=== PATIENT | female | born 1985 | race Two or more races ===

== ENCOUNTER 2024-09-18 22:34 | Emergency (ER) | payer MEDICAID, SELFPAY ==
[2024-09-18 22:35] VITALS: BMI 43.8
[2024-09-18 22:44] VITALS: BP 150/92; PULSE 94; RESP 18; TEMP 37; O2SAT 98
--- NOTE | 2024-09-18 22:53 | EDNOTE_ITS ---
ED Allergic Reaction RME/HPI General Chief complaint: Allergic Reaction Stated complaint: ALLERGIC REACTION TO SHRIMP Time Seen by Provider: 09/18/24 22:50 Arrival date/time: 09/18/24 22:34 39-year-old female with a history of shellfish allergies reports with complaints of allergic reaction. Patient states she had some food today unaware that it contained shrimp. Patient states that she broke out immediately and hives but no tongue swelling no shortness of breath no sensation of throat closing. Patient states that she has not taken any medications for symptoms Limitations: no limitations Related Data Home Medications ?Medication ?Instructions ?Recorded ?Confirmed aspirin 81 mg chewable tablet 81 mg PO BID 12/26/23 03/12/24 budesonide-formoterol HFA 80 2 inh inhalation BID PRN short of 12/26/23 03/12/24 mcg-4.5 mcg/actuation aerosol breath inhaler (Symbicort) vits no.130-ferrous fum 1 tab PO DAILY 12/26/23 03/12/24 27 mg iron-folic acid 800 mcg tablet ( Vitamin) nifedipine 30 mg tablet,extended 30 mg PO DAILY 03/06/24 03/12/24 release 24 hr (Procardia XL) Previous Rx's ?Medication ?Instructions ?Recorded epinephrine 0.3 mg/0.3 mL See Rx Instructions .Route 09/19/24 injection, auto-injector (EpiPen .COMPLEX #2 ea 2-Garrett) Allergies Allergy/AdvReac Type Severity Reaction Status Date / Time shrimp Allergy Severe Swelling Verified 03/12/24 02:01 of Lip/Tongue/Throat acetaminophen Allergy Intermediate Hives Verified 03/12/24 02:01 [From Theraflu Day-Night Cold,Cough] dextromethorphan Allergy Intermediate Hives Verified 03/12/24 02:01 [From Theraflu Day-Night Cold,Cough] diphenhydramine Allergy Intermediate Hives Verified 03/12/24 02:01 [From Theraflu Day-Night Cold,Cough] phenylephrine Allergy Intermediate Hives Verified 03/12/24 02:01 [From Theraflu Day-Night Cold,Cough] Review of Systems Constitutional Constitutional: Denies chills, Denies fever(s) and Denies headache(s) ENT Ears, Nose, Mouth, and Throat: Denies headache(s), Denies throat swelling, Denies tongue swelling and Denies vertigo Cardiovascular Cardiovascular: Denies chest pain and Denies dyspnea Respiratory Respiratory: Denies cough and Denies dyspnea Gastrointestinal Gastrointestinal: Denies nausea and Denies vomiting Musculoskeletal Musculoskeletal: Denies deformity and Denies joint swelling Integumentary/Breasts Skin/Breast: Reports pruritus and Reports rash Neurologic Neurologic: Denies headache(s) and Denies vertigo Hematologic/Lymphatic Hematologic/Lymphatic: Denies easy bleeding and Denies easy bruising Allergic/Immunologic Allergic/Immunologic: Denies throat swelling and Denies tongue swelling Past Medical History Past Medical History NEUROLOGIC: Negative Neurological Disorders or Seizures CARDIAC: Negative Cardiac Disorders or Congestive Heart Failure RESPIRATORY: Positive Asthma; Negative Chronic Obstructive Pulmonary Disease (COPD) GASTROINTESTINAL: Positive Obesity; Negative Gastrointestinal Disorders GENITOURINARY: Negative Genitourinary Disorders or Renal Disease MUSCULOSKELETAL: Negative Musculoskeletal Disorders ENDOCRINE: Positive Diabetes Mellitus Type 2; Negative Endocrine Disorders or Diabetes Mellitus Type 1 HEMATOLOGIC: Negative Blood Disorders OTHER HISTORY: Negative Hospitalization, Autoimmune Disease, Down Syndrome, Developmental Delay, Shingles, Falls, Blood Transfusions, Blood Transfusion Reaction, Anesthesia Reactions or MRSA Family History FAMILY HISTORY: Positive Family Respiratory Disorders; Negative Family Psychiatric Problems, Family Cardiac Disorders, Family Gastrointestinal Problems, Family Cancer, Family Surgery or Family Anesthesia Reaction Surgical History SURGICAL: Positive Cardiac Surgery Social History SMOKING STATUS: Never smoker ED Exam General Limitations: Present no limitations General appearance: Present alert and in no apparent distress Head Head exam: Present atraumatic Eye Eye exam: Present normal appearance, PERRL and EOMI ENT ENT exam: Present normal exam, normal oropharynx, mucous membranes moist and other (Airway is patent no tongue swelling) Neck Neck exam: Present normal inspection, full ROM and trachea midline Chest Chest inspection: Present normal inspection and symmetric chest wall rise Respiratory Respiratory exam: Present normal lung sounds bilaterally Cardiovascular Cardiovascular exam: Present regular rate, normal rhythm and normal heart sounds Abdominal Exam Abdominal exam: Present soft and normal bowel sounds Extremities Exam Extremities exam: Present normal inspection and full ROM Back Exam Back exam: Present normal inspection and full ROM Neurological Exam Neurological exam: Present alert, oriented X3 and CN II-XII intact Psychiatric Psychiatric exam: Present normal affect and normal mood Skin Skin exam: Present warm, dry, intact and rash (Diffuse hives noted on face neck trunk and upper extremities) Course Course Course Narrative: 39-year-old female with a history of shellfish allergy reports with complaints of allergic reaction. Patient was given Decadron and reassessment of patient states she is feeling much better hives are starting to resolve no tongue swelling no shortness of breath no throat closing. Patient is stable nontoxic- appearing with stable vital signs will be discharged home with an EpiPen and advised to follow-up as needed with PCP Quality Measures none Orders Category Date Time Status Dexamethasone Inj [Decadron Inj] Med 09/18/24 22:53 Discontinued 10 mg PO X1 ONE Vital Signs Vital signs: Vital Signs Temperature 98.6 F 09/18/24 22:44 Pulse Rate 94 09/18/24 22:44 Respiratory Rate 18 09/18/24 22:44 Blood Pressure 150/92 H 09/18/24 22:44 Pulse Oximetry (%) 98 09/18/24 22:44 Oxygen Delivery Method Room Air 09/18/24 22:44 Allergic Reaction Patient data External records reviewed:: None Clinical information provided by:: patient Social determinants that could affect healthcare access:: none Patient has the following chronic illnesses:: none How is presenting disease/condition affected by chronic disease/condition?: no chronic disease Evaluation data The following diagnostics were reviewed and interpreted by me:: other (specify) (none) Lab and/or radiology exams considered but not ordered:: none Interpretation Summary: n/a Medications / Prescriptions Medications or Prescriptions considered but not ordered:: Benadryl and epinephrine Medication administrations:: Medication Administration History Discontinued Medications Dexamethasone Sodium Phosphate (Dexamethasone Sod Phos Inj 10 Mg/Ml Vial) 10 mg PO X1 ONE Stop: 09/18/24 22:54 Last Admin: 09/18/24 23:19 Dose: 10 mg Documented By: As above Consultations Consultation(s) initiated? (list below): No Diagnosis Most likely diagnosis given after review of the tests above:: Allergic reaction Admission Indicated Admission indicated?: not indicated Admission Request Was there a request for admission?: No Disposition Plan Disposition Plan: Discharge Discharge Attestation Discharge Attestation: The patient and all family members were given an opportunity to ask questions and understood the discharge instructions. Discharge instructions specifically effects, indications for sooner follow up or return to the emergency department, and the expected course of current diagnosis. Patient condition: Stable Discharge Plan Plan Patient Disposition: HOME (Self Care) Prescriptions/Referrals Prescriptions/Med Rec: New epinephrine [EpiPen 2-Garrett] 0.3 mg/0.3 mL auto-injector See Rx Instructions .ROUTE .COMPLEX Qty: 2 0RF Rx Instructions: 0.3 mL subcutaneously as directed on box for anaphylaxis No Action aspirin 81 mg tablet,chewable 81 mg PO BID budesonide-formoterol [Symbicort] 80-4.5 mcg/actuation HFA aerosol inhaler 2 inh INHALATION BID PRN (Reason: short of breath) Patient Comments: INHALE ONE PUFF BY MOUTH TWICE DAILY Vitamin 27 mg iron- 800 mcg tablet 1 tab PO DAILY Patient Comments: TAKE ONE TABLET BY MOUTH EVERY DAY VITAMIN nifedipine [Procardia XL] 30 mg Tablet Extended Release 24hr 30 mg PO DAILY Referrals: Temporary Provider,ED [Physician] - In 1 week Problem List Clinical Impression: Allergic reaction Patient/Caregiver Discharge Instructions Discharge Activity: activity as tolerated Additional Instructions: Use medication as directed on the box as needed. Follow with your primary care provider as needed Print Language: Finnish Stand Alone Forms: [employer] Award Info., Patient Portal Info Letter
[2024-09-18] MEDS: DEXAMETHASONE SOD PHOS INJ 10 MG/ML VIAL PO (23:19)
== END 2024-09-19 01:35 | disposition home or self-care (01) ==
PROVIDERS: Emergency Provider Emergency Medicine; PCP Family Medicine
DX: T78.1XXA Other adverse food reactions, not elsewhere classified, initial encounter (principal); L50.0 Allergic urticaria
CPT/HCPCS: 99282; J1100

== ENCOUNTER 2024-10-09 12:18 | Emergency (ER) | payer MEDICAID, SELFPAY ==
[2024-10-09 12:30] VITALS: PULSE 95; RESP 18; O2SAT 99
[2024-10-09 12:40] VITALS: BP 134/88; PULSE 83; RESP 19; TEMP 36.9; O2SAT 98; BMI 41.7
--- NOTE | 2024-10-09 12:42 | XR_ITS ---
Examination: Knee, right , 3 views Technique: Knee AP, lateral, oblique 3 views Date and time of exam: October 09, 2024 at 1249 hours INDICATIONS: Injury to the knee today, knee pain FINDINGS: No fracture or dislocation No foreign body IMPRESSION: No fracture or dislocation
--- NOTE | 2024-10-09 12:42 | PD.EDDIZZY ---
ED Dizzyness RME/HPI General Chief Complaint: Dizziness Stated Complaint: DIZZINESS Time Seen by Provider: 10/09/24 12:37 Source: patient Arrival date/time: 10/09/24 12:18 39-year-old female with no known medical history presents to the emergency room with a chief complaint of dizziness and lightheadedness as well as some right sided knee pain x 1 hour. Patient states she was on the ground playing with her kids when she began having some right-sided knee pain after hitting her knee on a toy. Patient states moments after she began to feel lightheaded and dizzy and the cold sensation in her chest and called EMS. Mode of arrival: ambulatory Limitations: no limitations Related Data Home Medications ?Medication ?Instructions ?Recorded ?Confirmed aspirin 81 mg chewable tablet 81 mg PO BID 12/26/23 03/12/24 budesonide-formoterol HFA 80 2 inh inhalation BID PRN short of 12/26/23 03/12/24 mcg-4.5 mcg/actuation aerosol breath inhaler (Symbicort) vits no.130-ferrous fum 1 tab PO DAILY 12/26/23 03/12/24 27 mg iron-folic acid 800 mcg tablet ( Vitamin) nifedipine 30 mg tablet,extended 30 mg PO DAILY 03/06/24 03/12/24 release 24 hr (Procardia XL) Previous Rx's ?Medication ?Instructions ?Recorded epinephrine 0.3 mg/0.3 mL See Rx Instructions .Route 09/19/24 injection, auto-injector (EpiPen .COMPLEX #2 ea 2-Garrett) Allergies Allergy/AdvReac Type Severity Reaction Status Date / Time shrimp Allergy Severe Swelling Verified 03/12/24 02:01 of Lip/Tongue/Throat acetaminophen Allergy Intermediate Hives Verified 03/12/24 02:01 [From Theraflu Day-Night Cold,Cough] dextromethorphan Allergy Intermediate Hives Verified 03/12/24 02:01 [From Theraflu Day-Night Cold,Cough] diphenhydramine Allergy Intermediate Hives Verified 03/12/24 02:01 [From Theraflu Day-Night Cold,Cough] phenylephrine Allergy Intermediate Hives Verified 03/12/24 02:01 [From Theraflu Day-Night Cold,Cough] Review of Systems Review of Systems Systems Reviewed: All systems reviewed, normal except as documented Constitutional Constitutional: Reports system reviewed and no additional complaints, except as documented, Denies fatigue, Denies fever(s), Denies headache(s) and Denies weakness Eyes Eyes: Reports system reviewed and no additional complaints, except as documented, Denies blurry vision and Denies change in vision ENT Ears, Nose, Mouth, and Throat: Reports system reviewed and no additional complaints, except as documented, Denies otalgia, Denies headache(s), Denies nasal congestion, Denies throat swelling and Denies vertigo Cardiovascular Cardiovascular: Reports system reviewed and no additional complaints, except as documented, Reports chest pain, Denies dyspnea, Denies dyspnea on exertion, Reports lightheadedness and Reports rapid heart rate Respiratory Respiratory: Reports system reviewed and no additional complaints, except as documented, Denies chest congestion, Denies cough, Denies dyspnea, Denies dyspnea on exertion and Denies wheezing Gastrointestinal Gastrointestinal: Reports system reviewed and no additional complaints, except as documented, Denies abdominal pain, Denies cramping, Denies nausea and Denies vomiting Genitourinary Genitourinary: Reports system reviewed and no additional complaints, except as documented Musculoskeletal Musculoskeletal: Reports system reviewed and no additional complaints, except as documented and Denies back pain Integumentary/Breasts Skin/Breast: Reports system reviewed and no additional complaints, except as documented and Denies wounds Neurologic Neurologic: Reports system reviewed and no additional complaints, except as documented, Denies confusion, Denies headache(s), Denies lack of coordination, Denies vertigo and Denies weakness Psychiatric Psychiatric: Reports system reviewed and no additional complaints, except as documented, Denies anxiety, Denies confusion, Denies depression, Denies paranoia, Denies suicidal ideation and Denies tactile hallucinations Endocrine Endocrine: Reports system reviewed and no additional complaints, except as documented and Denies fatigue Hematologic/Lymphatic Hematologic/Lymphatic: Reports system reviewed and no additional complaints, except as documented and Denies lymphadenopathy Allergic/Immunologic Allergic/Immunologic: Reports system reviewed and no additional complaints, except as documented, Denies throat swelling, Denies urticaria and Denies wheezing Past Medical History Past Medical History NEUROLOGIC: Negative Neurological Disorders or Seizures CARDIAC: Negative Cardiac Disorders or Congestive Heart Failure RESPIRATORY: Positive Asthma; Negative Chronic Obstructive Pulmonary Disease (COPD) GASTROINTESTINAL: Positive Obesity; Negative Gastrointestinal Disorders GENITOURINARY: Negative Genitourinary Disorders or Renal Disease MUSCULOSKELETAL: Negative Musculoskeletal Disorders ENDOCRINE: Positive Diabetes Mellitus Type 2; Negative Endocrine Disorders or Diabetes Mellitus Type 1 HEMATOLOGIC: Negative Blood Disorders OTHER HISTORY: Negative Hospitalization, Autoimmune Disease, Down Syndrome, Developmental Delay, Shingles, Falls, Blood Transfusions, Blood Transfusion Reaction, Anesthesia Reactions or MRSA Family History FAMILY HISTORY: Positive Family Respiratory Disorders; Negative Family Psychiatric Problems, Family Cardiac Disorders, Family Gastrointestinal Problems, Family Cancer, Family Surgery or Family Anesthesia Reaction Surgical History SURGICAL: Positive Cardiac Surgery Social History SMOKING STATUS: Never smoker ED Exam General Limitations: Present no limitations General appearance: Present alert and in no apparent distress Head Head exam: Present atraumatic Eye Eye exam: Present normal appearance, PERRL and EOMI ENT ENT exam: Present normal exam, normal oropharynx and mucous membranes moist Neck Neck exam: Present normal inspection, full ROM and trachea midline Chest Chest inspection: Present normal inspection and symmetric chest wall rise Respiratory Respiratory exam: Present normal lung sounds bilaterally; Absent respiratory distress, wheezes, stridor, accessory muscle use or prolonged expiratory phase Cardiovascular Cardiovascular exam: Present regular rate, normal rhythm and normal heart sounds; Absent bradycardia, tachycardia, irregular rhythm, systolic murmur or diastolic murmur Abdominal Exam Abdominal exam: Present soft and normal bowel sounds Extremities Exam Extremities exam: Present normal inspection and full ROM Expanded Lower Extremity Exam Hip/Pelvis exam: Present normal inspection Upper leg exam: Present normal inspection Knee exam: Present tenderness; Absent full ROM, swelling or abrasion Lower leg exam: Present normal inspection Ankle exam: Present normal inspection Foot/toe exam: Present normal inspection Gait: observed and normal Back Exam Back exam: Present normal inspection and full ROM Neurological Exam Neurological exam: Present alert, oriented X3 and CN II-XII intact Psychiatric Psychiatric exam: Present normal affect and normal mood Skin Skin exam: Present warm, dry, intact and normal color Course Quality Measures none Orders Category Date Time Status EKG (ED ONLY) *Do not use* NOW Care 10/09/24 12:42 Completed EKG (ED Only) Stat Exams 10/09/24 12:42 Ordered XR knee RT 3V Stat Exams 10/09/24 12:42 Completed B-Type Natriuretic Peptide Stat Lab 10/09/24 13:00 Completed CBC Stat Lab 10/09/24 13:00 Completed Comprehensive Metabolic Panel Stat Lab 10/09/24 13:00 Completed Magnesium Stat Lab 10/09/24 13:00 Completed Troponin I Stat Lab 10/09/24 13:00 Completed Vital Signs Vital signs: Vital Signs Temperature 98.5 F 10/09/24 12:40 Pulse Rate 83 10/09/24 12:40 Respiratory Rate 19 10/09/24 12:40 Blood Pressure 134/88 H 10/09/24 12:40 Pulse Oximetry (%) 98 10/09/24 12:40 Oxygen Delivery Method Room Air 10/09/24 12:40 O2 saturation 98% within normal limits Dizziness MDM Narrative MDM Narrative:: 39-year-old female with no known medical history presents to the emergency room with a chief complaint of dizziness and lightheadedness as well as some right sided knee pain x 1 hour. Patient states she was on the ground playing with her kids when she began having some right-sided knee pain after hitting her knee on a toy. Patient states moments after she began to feel lightheaded and dizzy and the cold sensation in her chest and called EMS. Clinically the patient appears nontoxic and in no apparent distress. Physical examination shows tenderness with palpation to the lateral side of the right knee. There is no laxity. Patient is complaining of 5 out of 10 intermittent chest pain as well as a sensation of coldness. Patient states she is having dizziness and lightheadedness that accompanies the symptoms. Patient has a normal neurological examination she was a GCS of 15 alert and oriented x 4 pupils are PERRLA EOMs are intact. CT of the head and brain was completed and was negative for any acute hemorrhage mass effect or midline shift. CBC CMP were negative for any acute findings urinalysis was normal. Patient was educated to follow-up with primary care provider and return to the emergency room for any evidence of worsening signs or symptoms Patient data External records reviewed:: [facility] previous records Clinical information provided by:: patient Social determinants that could affect healthcare access:: none Patient has the following chronic illnesses:: No chronic illnesses How is presenting disease/condition affected by chronic disease/condition?: no chronic disease Evaluation data The following diagnostics were reviewed and interpreted by me:: lab results and radiology exam(s) Lab and/or radiology exams considered but not ordered:: Labs and radiology exams considered and ordered Interpretation Summary: Right knee x-ray-no acute fracture Medications / Prescriptions Medications or Prescriptions considered but not ordered:: Medication not given Medication administrations:: Medication not given Consultations Consultation(s) initiated? (list below): No Diagnosis Dizziness Differential Diagnosis: benign paroxysmal positional vertigo, orthostatic hypotension, vertebral basilar insufficiency, cerebrovascular accident and other (Dizziness) Most likely diagnosis given after review of the tests above:: Dizziness Admission Indicated Admission indicated?: not indicated Admission Request Was there a request for admission?: No Disposition Plan Disposition Plan: Discharge Discharge Attestation Discharge Attestation: The patient and all family members were given an opportunity to ask questions and understood the discharge instructions. Discharge instructions specifically effects, indications for sooner follow up or return to the emergency department, and the expected course of current diagnosis. Patient condition: Stable Discharge Plan Plan Patient Disposition: HOME (Self Care) Disposition Comment: Stable Prescriptions/Referrals Prescriptions/Med Rec: No Action aspirin 81 mg tablet,chewable 81 mg PO BID budesonide-formoterol [Symbicort] 80-4.5 mcg/actuation HFA aerosol inhaler 2 inh INHALATION BID PRN (Reason: short of breath) Patient Comments: INHALE ONE PUFF BY MOUTH TWICE DAILY Vitamin 27 mg iron- 800 mcg tablet 1 tab PO DAILY Patient Comments: TAKE ONE TABLET BY MOUTH EVERY DAY VITAMIN epinephrine [EpiPen 2-Garrett] 0.3 mg/0.3 mL auto-injector See Rx Instructions .ROUTE .COMPLEX Qty: 2 0RF Rx Instructions: 0.3 mL subcutaneously as directed on box for anaphylaxis nifedipine [Procardia XL] 30 mg Tablet Extended Release 24hr 30 mg PO DAILY Referrals: Javier Sainz MD [Primary Care Provider] - In 1 week Problem List Clinical Impression: Dizziness of unknown etiology Patient/Caregiver Discharge Instructions Education Materials: ED Dizziness, Uncertain Cause Additional Instructions: Please follow-up with your primary care provider in the next 24 to 48 hours. Your cardiac workup was within normal limits. Blood work was normal urinalysis was normal. Your x-ray from your right knee was negative for any acute fracture. Please follow-up with your primary care provider and return to the emergency room for any evidence of worsening signs or symptoms Print Language: Salvadorean Stand Alone Forms: SPARQ Info., Patient Portal Info Letter MONI/RICKEY Supervising Physician MONI/RICKEY Supervising Physician: Dr Hall
[2024-10-09 13:21] LABS: Basophils % (Auto) 1 % (0-2.5); Eosinophils # (Auto) 0.7 Thou/mm3 (0.0-0.5); Eosinophils % (Auto) 9 % (0-10); Hematocrit 34.2 % (36.0-46.0); Hemoglobin 11.3 g/dL (12.0-16.0); Immature Granulocytes % (Auto) 0 % (0-0); Immature Granulocytes Auto 0.02 Thou/mm3 (0.00-0.00); Lymphocytes # (Auto) 1.8 Thou/mm3 (1.0-4.8); Lymphocytes % (Auto) 21 % (10-50); Mean Corpuscular Hemoglobin 27.3 pg (25.0-35.0); Mean Corpuscular Volume 83 fL (80-100); Monocytes # (Auto) 0.4 Thou/mm3 (0.0-0.8); Monocytes % (Auto) 5 % (0-12); Neutrophils # (Auto) 5.3 Thou/mm3 (1.8-7.7); Neutrophils % (Auto) 65 % (37-80); Nucleated Red Blood Cell % 0 /100 WBC (0); Platelet Count 393 Thou/mm3 (140-440); RDW Standard Deviation 38.3 fL (36.4-46.3); Red Blood Count 4.14 Miln/mm3 (4.00-5.20); White Blood Count 8.2 Thou/mm3 (3.6-11.0)
[2024-10-09 13:39] LABS: B-Type Natriuretic Peptide < 20 pg/mL (0-100)
[2024-10-09 13:51] LABS: Alanine Aminotransferase 29 U/L (10-49); Albumin, Serum 4.6 gm/dL (3.5-5.0); Albumin/Globulin Ratio 1.6 (1.2-2.2); Alkaline Phosphatase 62 U/L (46-116); Anion Gap 7 (7-16); Aspartate Amino Transferase 73 U/L (0-34); BUN/Creatinine Ratio 11 Ratio (12-20); Bilirubin,Total 0.3 mg/dL (0.3-1.2); Blood Urea Nitrogen 9 mg/dL (9-23); Calcium 9.1 mg/dL (8.3-10.6); Calcium (Corrected) 9.1 mg/dL (8.5-10.1); Carbon Dioxide 24.8 mMol/L (20.0-31.0); Chloride 106 mMol/L (98-107); Creatinine (Component) 0.8 mg/dL (0.6-1.3); Estimated Creatinine Clearance 133.9 mL/min (>60); Globulin 2.8 gm/dL (2.3-3.5); Glucose 98 mg/dL (74-106); Osmolality,Calculated 274 (275-295); Sodium 138 mMol/L (136-145); Total Protein 7.4 gm/dL (5.7-8.2); eGFR > 60 See Note
[2024-10-09 14:02] LABS: Troponin I < 0.002 ng/mL (0.0-0.045)
== END 2024-10-09 14:50 | disposition home or self-care (01) ==
PROVIDERS: Nurse Practitioner Family; Emergency Provider Emergency Medicine; PCP Family Medicine
DX: R42 Dizziness and giddiness (principal); S89.91XA Unspecified injury of right lower leg, initial encounter; W22.8XXA Striking against or struck by other objects, initial encounter; Y93.89 Activity, other specified
CPT/HCPCS: 36415; 73562; 80053; 83735; 83880; 84484; 85025; 93005; 99283

== ENCOUNTER 2024-12-13 05:40 | Day surgery (SDC) | payer MEDICAID, SELFPAY ==
[2024-12-12 09:39] VITALS: BMI 44.1
[2024-12-12 11:03] LABS: Basophils % (Auto) 1 % (0-2.5); Eosinophils # (Auto) 0.3 Thou/mm3 (0.0-0.5); Eosinophils % (Auto) 4 % (0-10); Hematocrit 36.5 % (36.0-46.0); Hemoglobin 11.7 g/dL (12.0-16.0); Immature Granulocytes % (Auto) 0 % (0-0); Immature Granulocytes Auto 0.01 Thou/mm3 (0.00-0.00); Lymphocytes # (Auto) 2.2 Thou/mm3 (1.0-4.8); Lymphocytes % (Auto) 29 % (10-50); Mean Corpuscular HGB Conc 32.1 g/dl (31.0-37.0); Mean Corpuscular Hemoglobin 25.5 pg (25.0-35.0); Mean Corpuscular Volume 80 fL (80-100); Monocytes # (Auto) 0.2 Thou/mm3 (0.0-0.8); Monocytes % (Auto) 3 % (0-12); Neutrophils # (Auto) 4.7 Thou/mm3 (1.8-7.7); Neutrophils % (Auto) 63 % (37-80); Nucleated Red Blood Cell % 0 /100 WBC (0); Platelet Count 420 Thou/mm3 (140-440); RDW Standard Deviation 41.6 fL (36.4-46.3); Red Blood Count 4.58 Miln/mm3 (4.00-5.20); White Blood Count 7.4 Thou/mm3 (3.6-11.0)
[2024-12-12 11:21] LABS: HCG,Qualitative Serum Negative
[2024-12-12 12:03] LABS: Hepatitis A Antibody IgM Non Reactive (Non React); Hepatitis B Core Antibody IgM Non Reactive (Non React); Hepatitis B Surface Antigen Non Reactive (Non React); Hepatitis C Antibody Non Reactive (Non React)
--- NOTE | 2024-12-12 14:36 | SUR.PREOP ---
Message left for pt to come in tomorrow at 0700 for surgery.
[2024-12-12 16:41] LABS: HIV (1&2) Antibody Rapid Non-Reactive
[2024-12-13] VITALS (11 sets, daily range): BP systolic 128–147; BP diastolic 72–95; PULSE 78–101; RESP 13–20; TEMP 36.6–36.7; O2SAT 95–98; BMI 44.4
[2024-12-13] MEDS: ALBUTEROL RT 2.5 MG/3 ML NEBU INH (09:02)
--- NOTE | 2024-12-13 10:38 | SUR.PHASEI ---
1038 Patient arrived to recovery resting comfortably in [facility], sleeping and able to arouse with verbal prompting and then drifts back to sleep, on oxygen 8L via oxy mask, breathing unlabored, vital signs stable, denies pain, dressing intact to abdomen; dermabond, no bleeding noted, lung sounds clear upon auscultation, bilateral radial pulses present when palpated, report received from Chanel KLINE/Angel KLINE and Dr. [place]
--- NOTE | 2024-12-13 10:40 | PD.GYNPROC ---
Operative Note - [employer] Procedure Date of procedure: 12/13/24 Procedure Performed: Bilateral salpingectomy, laparoscopic Laparoscopic lysis of adhesion Indication: Desires sterilization Pre-Op diagnosis: Same Post-Op diagnosis: Extensive omental adhesions to anterior abdominal wall Procedure description: Patient was taken to the operating room. General anesthesia was given without any complications.? A time out was given confirming Vangie Sainz was undergoing the following, procedure,allergies, and surgeon.The patient was positioned in the dorsal lithotomy position. The bladder was emptied. The perineum was prepped with Betadine solution per routine.The abdomen was prepped with DuraPrep. Attention was then focused to the vagina.? A sponge placed in a ring forceps was placed in the posterior fornix and used as a uterine manipulator.? The surgeon then changed gloves to continue proper sterile technique. Attention was diverted to the abdomen. An umblical incision was first made, Two towel clips were placed lateral to the umbilicus in order to elevate the abdominal wall.? A hemostat was used to assess the depth to the fascia. While applying countertraction by lifting the towel clips, a Veress needle was used to enter the peritoneal cavity, a initial abdominal pressure of 2 mmHg was noted upon entry. Veress needle used for initial pneumoperitoneum establishment. 5 mm port used for the direct trocar entry the abdomen was then insufflated with CO2 gas to 15mmHg, under the opti-view system was advanced into the peritoneal entry.? The Right lower quadrant was evaluated and a 5-mm incision was made . 5-mm trocar placed under camera surveillance.? Left side evaluated and a 5mm trocar inserted under optiview surveillance. Extensive omental adhesions seen to the anterior abdominal wall above the umbilicus. Careful examination of the omental adhesions was done to make sure there is no bowel included. Using Enseal device the omental band was dissected and released On observation: Normal anatomy with bilateral ovaries and tubes no peritoneal pathology identified. Using a laparoscopic [place] grasper, gently right tube at the fimbrial end was picked up. Gradually , her right and left tube was from the mesosalpinx using Enseal device. Same repeated on the other side bilateral salpingectomy done, hemostasis ensured. All the bowel at the initial trocar entry point was examined no entry injuries were noted Estimated blood loss (ml): 1 Surgical staff Operation Date: 12/13/24 09:15 <No data on this case meets the specified criteria> Diagnosis Problem List Completed Was Problem List Reviewed/Reconciled?: Yes
[2024-12-13] MEDS: ONDANSETRON INJ 2 MG/ML INJ 2 ML 4 MG IV (11:11)
--- NOTE | 2024-12-13 11:25 | SUR.PHASEII ---
1111 Patient endorsing nausea, Zofran 4mg via IV administered per anesthesia order, will monitor patient 1125 Medication effective, patient eating ice chips; tolerating well, denies nausea
--- NOTE | 2024-12-13 11:54 | SUR.PHASEII ---
1154 Patient meets discharge criteria from recovery, awake and alert, breathing unlabored, vital signs stable, denies pain, dressing intact; no bleeding noted, patient eating ice chips; tolerating well, denies nausea, patient assisted with dressing into her clothing by her , discharge instructions given to patient and patients with teach-back approach, both receptive, patients signed discharge instructions. Patient given all her belongings prior to discharge, transported via wheelchair and left in a private vehicle.
== END 2024-12-13 11:54 | disposition home or self-care (01) ==
PROVIDERS: PCP Family Medicine; Referring Provider Student in an Organized Health Care Education/Training Program; Visit Provider Student in an Organized Health Care Education/Training Program
PROC: (CPT 58670; principal; 2024-12-13 09:00)
DX: Z30.2 Encounter for sterilization (principal); K66.0 Peritoneal adhesions (postprocedural) (postinfection)
CPT/HCPCS: 58661; 36415; 80074; 84703; 85025; 86703; 86850; 86900; 86901; A4217; A4649; J1100; J2250; J2405; J2704; J3010; J3490; A9270

== ENCOUNTER 2025-04-24 12:31 | Emergency (ER) | payer MEDICAID, SELFPAY ==
[2025-04-24 12:38] VITALS: BP 139/91; PULSE 60; RESP 16; TEMP 36.8; O2SAT 99; BMI 43.8
--- NOTE | 2025-04-24 12:47 | PD.EDEYE ---
ED Eye Problem RME/HPI General Chief complaint: Eye Problems Stated complaint: Right eye swelling today Time Seen by Provider: 04/24/25 12:41 Arrival date/time: 04/24/25 12:31 39-year-old female presents to the Emergency Department today stating that she sprayed a chemical today kill a spider when she did so she then rubbed her hand on her right eye and then her right eye became inflamed. Patient reports no disturbances of vision Limitations: no limitations Related Data Home Medications ?Medication ?Instructions ?Recorded ?Confirmed budesonide-formoterol HFA 80 2 inh inhalation BID PRN short of 12/26/23 12/12/24 mcg-4.5 mcg/actuation aerosol breath inhaler (Symbicort) albuterol sulfate 90 mcg/actuation 2 inh inhalation Q4H PRN shortness 12/12/24 12/12/24 aerosol inhaler of breath or wheezing Previous Rx's ?Medication ?Instructions ?Recorded epinephrine 0.3 mg/0.3 mL See Rx Instructions .Route 09/19/24 injection, auto-injector (EpiPen .COMPLEX #2 ea 2-Garrett) acetaminophen 300 mg-codeine 15 mg 1 tab PO Q12H PRN pain #14 tabs 12/13/24 tablet ibuprofen 800 mg tablet 800 mg PO Q8H PRN pain #20 tabs 12/13/24 diphenhydramine HCl 25 mg capsule 25 mg PO Q8H PRN allergic symptoms 04/24/25 (Benadryl) #30 caps tobramycin 0.3 %-dexamethasone 0.1 2 drp ophthalmic (eye) QID #5 mL 04/24/25 % eye drops,suspension Allergies Allergy/AdvReac Type Severity Reaction Status Date / Time shrimp Allergy Severe Swelling Verified 04/24/25 12:34 of Lip/Tongue/Throat acetaminophen (From Theraflu Allergy Intermediate Hives Verified 04/24/25 12:34 Day-Night Cold,Cough) dextromethorphan (From Allergy Intermediate Hives Verified 04/24/25 12:34 Theraflu Day-Night Cold,Cough) phenylephrine (From Theraflu Allergy Intermediate Hives Verified 04/24/25 12:34 Day-Night Cold,Cough) Review of Systems Review of Systems Systems Reviewed: All systems reviewed, normal except as documented Constitutional Constitutional: Reports system reviewed and no additional complaints, except as documented, Denies fever(s) and Denies headache(s) Eyes Eyes: Reports system reviewed and no additional complaints, except as documented, Denies blurry vision, Reports eye pain and Reports other (Right upper eyelid swelling) ENT Ears, Nose, Mouth, and Throat: Reports system reviewed and no additional complaints, except as documented, Denies headache(s), Denies nasal congestion and Denies nasal discharge Cardiovascular Cardiovascular: Reports system reviewed and no additional complaints, except as documented, Denies chest pain and Denies dyspnea Respiratory Respiratory: Reports system reviewed and no additional complaints, except as documented, Denies chest congestion, Denies cough and Denies dyspnea Gastrointestinal Gastrointestinal: Reports system reviewed and no additional complaints, except as documented and Denies abdominal pain Integumentary/Breasts Skin/Breast: Reports system reviewed and no additional complaints, except as documented and Denies rash Neurologic Neurologic: Reports system reviewed and no additional complaints, except as documented, Reports as per HPI and Denies headache(s) Past Medical History Past Medical History NEUROLOGIC: Negative Neurological Disorders or Seizures CARDIAC: Negative Cardiac Disorders or Congestive Heart Failure RESPIRATORY: Positive Asthma; Negative Chronic Obstructive Pulmonary Disease (COPD) GASTROINTESTINAL: Positive Gastrointestinal Disorders and Obesity; Negative Hepatitis GENITOURINARY: Negative Genitourinary Disorders or Renal Disease REPRODUCTIVE: Positive Previous Pregnancies (5) MUSCULOSKELETAL: Negative Musculoskeletal Disorders ENDOCRINE: Negative Endocrine Disorders, Diabetes Mellitus Type 1 or Diabetes Mellitus Type 2 HEMATOLOGIC: Positive Blood Disorders and Anemia OTHER HISTORY: Positive Blood Transfusions and Chicken Pox; Negative Hospitalization, Autoimmune Disease, Down Syndrome, Developmental Delay, Shingles, Falls, Blood Transfusion Reaction, Anesthesia Reactions, MRSA or Cancer Family History FAMILY HISTORY: Positive Family Respiratory Disorders, Family Cardiac Disorders and Family Surgery; Negative Family Psychiatric Problems, Family Gastrointestinal Problems, Family Cancer or Family Anesthesia Reaction Surgical History SURGICAL: Positive Cardiac Surgery, Abdominal Surgery and Section (x2) Social History SMOKING STATUS: Never smoker ED Exam General Limitations: Present no limitations General appearance: Present alert and in no apparent distress Head Head exam: Present atraumatic Eye Eye exam: Present PERRL, EOMI and other (Chemosis right eye, no hyphema right upper eyelid swelling); Absent conjunctival injection ENT ENT exam: Present normal exam, normal oropharynx and mucous membranes moist Neck Neck exam: Present normal inspection, full ROM and trachea midline Chest Chest inspection: Present normal inspection and symmetric chest wall rise Respiratory Respiratory exam: Present normal lung sounds bilaterally Cardiovascular Cardiovascular exam: Present regular rate, normal rhythm and normal heart sounds Abdominal Exam Abdominal exam: Present soft and normal bowel sounds Extremities Exam Extremities exam: Present normal inspection and full ROM Back Exam Back exam: Present normal inspection and full ROM Neurological Exam Neurological exam: Present alert, oriented X3 and CN II-XII intact Psychiatric Psychiatric exam: Present normal affect and normal mood Skin Skin exam: Present warm, dry, intact and normal color Course Quality Measures none Orders Category Date Time Status DiphenhydrAMINE [Benadryl] Med 04/24/25 12:42 Discontinued 25 mg PO X1 ONE dexAMETHasone TAB [Decadron Tab] Med 04/24/25 12:42 Discontinued 10 mg PO X1 ONE Vital Signs Vital signs: Vital Signs Temperature 98.3 F 04/24/25 12:38 Pulse Rate 60 04/24/25 12:38 Respiratory Rate 16 04/24/25 12:38 Blood Pressure 139/91 H 04/24/25 12:38 Pulse Oximetry (%) 99 04/24/25 12:38 Oxygen Delivery Method Room Air 04/24/25 12:38 O2 saturation 99% room air within normal limits Eye MDM Narrative MDM Narrative:: 39-year-old female presents to the Emergency Department today stating that she sprayed a chemical today kill a spider when she did so she then rubbed her hand on her right eye and then her right eye became inflamed. Patient reports no disturbances of vision Patient's right eye is irrigated patient put on antibiotics Patient given information to follow-up with eye doctor instructed to follow-up there today for further evaluation patient states understanding For emergent concerns patient is instructed return immediately Patient data External records reviewed:: [facility] previous records Clinical information provided by:: patient Social determinants that could affect healthcare access:: none Patient has the following chronic illnesses:: None How is presenting disease/condition affected by chronic disease/condition?: no chronic disease Evaluation data The following diagnostics were reviewed and interpreted by me:: other (specify) (N/A) Lab and/or radiology exams considered but not ordered:: Consider not ordered Interpretation Summary: N/A Medications / Prescriptions Medications or Prescriptions considered but not ordered:: Given Medication administrations:: Medication Administration History Discontinued Medications Dexamethasone (Dexamethasone 4 Mg Tablet) 10 mg PO X1 ONE Stop: 04/24/25 12:43 Last Admin: 04/24/25 12:50 Dose: 10 mg Documented By: Diphenhydramine HCl (Diphenhydramine 25 Mg Capsule) 25 mg PO X1 ONE Stop: 04/24/25 12:43 Last Admin: 04/24/25 12:50 Dose: 25 mg Documented By: Given Consultations Consultation(s) initiated? (list below): No Diagnosis Eye Problem Differential Diagnosis: corneal abrasion, conjunctivitis, hyphema, periorbital cellulitis and corneal ulcer Most likely diagnosis given after review of the tests above:: Right upper eyelid swelling Admission Indicated Admission indicated?: not indicated Admission Request Was there a request for admission?: No Disposition Plan Disposition Plan: Discharge Discharge Attestation Discharge Attestation: The patient and all family members were given an opportunity to ask questions and understood the discharge instructions. Discharge instructions specifically effects, indications for sooner follow up or return to the emergency department, and the expected course of current diagnosis. Patient condition: Stable Discharge Plan Plan Patient Disposition: HOME (Self Care) Discharge Disposition comment: Stable Prescriptions/Referrals Prescriptions/Med Rec: New diphenhydramine HCl [Benadryl] 25 mg capsule 25 mg PO Q8H PRN (Reason: allergic symptoms) Qty: 30 0RF tobramycin-dexamethasone 0.3-0.1 % drops,suspension 2 drp ophthalmic (eye) QID Qty: 5 0RF No Action budesonide-formoterol [Symbicort] 80-4.5 mcg/actuation HFA aerosol inhaler 2 inh INHALATION BID PRN (Reason: short of breath) Patient Comments: INHALE ONE PUFF BY MOUTH TWICE DAILY epinephrine [EpiPen 2-Garrett] 0.3 mg/0.3 mL auto-injector See Rx Instructions .ROUTE .COMPLEX Qty: 2 0RF Rx Instructions: 0.3 mL subcutaneously as directed on box for anaphylaxis albuterol sulfate 90 mcg/actuation HFA aerosol inhaler 2 inh inhalation Q4H PRN (Reason: shortness of breath or wheezing) acetaminophen-codeine 300-15 mg tablet 1 tab PO Q12H PRN (Reason: pain) Qty: 14 0RF ibuprofen 800 mg tablet 800 mg PO Q8H PRN (Reason: pain) Qty: 20 0RF Problem List Clinical Impression: Allergic reaction, Chemosis of right conjunctiva Patient/Caregiver Discharge Instructions Education Materials: ED Medicine Reaction: Allergic Additional Instructions: Please follow-up with Dr. Dawkins today for worsening symptoms or concerns return immediately Please inform the office that they were seen in the ER and they refer you to him for further evaluation Print Language: [place] Stand Alone Forms: Cait Award Info., Patient Portal Info Letter PA/CYBER SECURITY ARCHITECT Supervising Physician PA/CYBER SECURITY ARCHITECT Supervising Physician: Dr camejo
== END 2025-04-24 13:05 | disposition home or self-care (01) ==
LOC: SERX 13:10
PROVIDERS: Emergency Provider Nurse Practitioner Primary Care
DX: T78.40XA Allergy, unspecified, initial encounter (principal); H11.421 Conjunctival edema, right eye
CPT/HCPCS: 99283; J8540; A9270